=== PATIENT | male | born 1995 | race Caucasian/White ===

== ENCOUNTER 2020-02-06 17:11 | Emergency (ER) | payer SELFPAY ==
[2020-02-06] MEDS ORDERED: cefTRIAXone\\ROCEPHIN 250 MG VIAL ONE (17:50)
[2020-02-06] MEDS ORDERED: Azithromycin 250 MG TAB ONE (17:50)
[2020-02-06] MEDS ORDERED: Lidocaine 1% (PF) 30 ML VIAL ONE (17:54)
== END 2020-02-06 18:42 | disposition home or self-care (01) ==
LOC: NAV ERS 17:11
DX: N34.2 Other urethritis (principal); F17.210 Nicotine dependence, cigarettes, uncomplicated; Z71.6 Tobacco abuse counseling
CPT/HCPCS: 96372; 99406; J0696; J2001